=== PATIENT | male | born 1940 | race Caucasian/White ===

== ENCOUNTER 2017-09-13 10:00 | Inpatient (IN) ==
[2017-09-13] MEDS ORDERED: MORPHINE 4 MG/1 ML VIAL IV PRN (11:47)
[2017-09-13] MEDS ORDERED: ONDANSETRON 4 MG/2 ML VIAL IV PRN (11:47)
[2017-09-13 13:07] LABS: Eosinophils % 0.8 % (0.00-10.9); Hematocrit 31.3 VOL% (42.0-52.0); Hemoglobin 10.5 GM/DL (14.0-18.0); Immature Granulocytes % 5.9 %; Immature Granulocytes Absolute 0.23 #; Lymphocytes # 0.4 10*3/uL (1.4-4.0); Lymphocytes % 10.4 % (21.2-54.2); Mean Corpuscular HGB Conc 33.5 GM/DL (32-36); Mean Corpuscular Hemoglobin 29 PG (27-34); Mean Corpuscular Volume 87.7 FL (87-102); Mean Platelet Volume 12.9 FL (9.6-12.0); Monocytes # 0.4 10*3/uL (0.11-0.8); Monocytes % 10.4 % (1.7-12.7); Neutrophils # 2.9 10*3/uL (1.4-7.4); Neutrophils % 72.5 % (38.7-73.9); Red Blood Count 3.57 MC/CUMM (3.8-5.5); White Blood Count 3.9 T/CUMM (4-12)
[2017-09-13 13:14] LABS: Platelet Count 50 T/CUMM (130-400)
[2017-09-13 13:35] LABS: Anisocytosis 1+; Band Neutrophils 32 % (0-10); Lymphocytes 12 % (20-55); Misc Morphology 11; Platelet Estimate Decreased; Segmented Neutrophils 45 % (50-85); Total Cells Counted 100
[2017-09-13 13:35] LABS: Albumin 2.2 G/DL (3.4-5.0); Bilirubin,Total 3.1 MG/DL (0.2-1.0); Calcium 8.6 MG/DL (8.5-10.1); Osmolality,Calculated 288.3 MOS/KG (273-304); Total Protein 6.1 G/DL (6.4-8.3)
[2017-09-13 13:36] LABS: Macrocytosis Slight
[2017-09-13 13:40] LABS: Rheumatoid Factor < 15 IU/ML (<15)
[2017-09-13 14:23] LABS: HIV Antigen/Antibody Result Nonreactive (Nonreactive)
[2017-09-13 14:27] LABS: Hepatitis A Ab IgM Quant 0.19 Index; Hepatitis A Ab IgM Result Negative (Negative); Hepatitis B Core IgM Quant 0.16 Index; Hepatitis B Core IgM Result Negative (Negative); Hepatitis B Surface Ag Quant < 0.10 Index; Hepatitis B Surface Ag Result Negative (Negative); Hepatitis C Virus Ab Quant 0.14 Index; Hepatitis C Virus Ab Result Negative (Negative)
[2017-09-13 14:29] LABS: Bilirubin,Direct 1.54 MG/DL (0.0-0.20); Bilirubin,Indirect 1.5 MG/DL (0.0-1.0)
[2017-09-13 15:06] LABS: Apearance,Urine Slightly Hazy (Clear); Bacteria,Urine Occasional /HPF (Few); Bilirubin,Urine Negative (Negative); Blood, Urine Negative (Negative); Glucose,Urine (UA) Negative (Negative); Hyaline Casts,Urine 1 /LPF (0-3); Ketones,Urine 5 mg/dL (Negative); Mucus,Urine Moderate /LPF (Occasional); Nitrite,Urine Negative (Negative); Protein,Urine 100 MG/DL; RBC,Urine 1 /HPF (0-4); Squamous Epithelial Cell,Urine Occasional /HPF (0-10); Urine Color Amber (Yellow); Urine Specific Gravity 1.033 (1.001-1.035); WBC,Urine 3 /HPF (0-6)
[2017-09-13] MEDS: LACTATED RINGERS 1,000 ML IV SCH (15:36)
[2017-09-13] MEDS: ACETAMINOPHEN 325 MG TABLET PO PRN (15:48)
[2017-09-13] MEDS: CETIRIZINE 10 MG TABLET PO SCH (18:36)
[2017-09-13] MEDS: cefTRIAXone 2,000 MG in SYRINGE 1 EACH IV SCH (18:43)
[2017-09-13] MEDS: ALBUTEROL/IPRATROPIUM 3 ML NEB RESP TX SCH ×2 (19:47→23:35)
[2017-09-13] MEDS ORDERED: DOXYCYCLINE HYCLATE 100 MG CAPSULE PO SCH (21:00)
[2017-09-13] MEDS ORDERED: ALBUTEROL/IPRATROPIUM 3 ML NEB RESP TX ONE (21:07)
[2017-09-13] MEDS: MAGNESIUM CHLORIDE 64 MG TABLET PO SCH (21:41)
[2017-09-13] MEDS: ASPIRIN EC 81 MG TABLET PO SCH (21:41)
[2017-09-13] MEDS: VANCOMYCIN INJ 1,250 MG in SODIUM CHLORIDE 0.9% 250 ML IV SCH (21:42)
[2017-09-13] MEDS: guaiFENesin 200 MG/10 ML UDCUP PO PRN (22:53)
[2017-09-14] MEDS: ALBUTEROL/IPRATROPIUM 3 ML NEB RESP TX SCH ×6 (02:46→23:55)
[2017-09-14] MEDS ORDERED: ENOXAPARIN 40 MG/0.4 ML SYRINGE SUBCUT SCH (05:50)
[2017-09-14 05:55] LABS: Basophils % 0.2 % (0.0-0.8); Eosinophils % 0.2 % (0.00-10.9); Hematocrit 28.3 VOL% (42.0-52.0); Hemoglobin 9.7 GM/DL (14.0-18.0); Immature Granulocytes Absolute 0.21 #; Lymphocytes # 0.8 10*3/uL (1.4-4.0); Mean Corpuscular HGB Conc 34.3 GM/DL (32-36); Mean Corpuscular Hemoglobin 29 PG (27-34); Monocytes # 0.5 10*3/uL (0.11-0.8); NRBC # 0.05 10*3/uL; Neutrophils # 2.6 10*3/uL (1.4-7.4); Neutrophils % 62.6 % (38.7-73.9); Red Blood Count 3.33 MC/CUMM (3.8-5.5); White Blood Count 4.2 T/CUMM (4-12)
[2017-09-14 06:01] LABS: Platelet Count 41 T/CUMM (130-400)
[2017-09-14 06:26] LABS: Albumin 1.9 G/DL (3.4-5.0); Bilirubin,Total 2.4 MG/DL (0.2-1.0); Calcium 8.2 MG/DL (8.5-10.1); Osmolality,Calculated 285.4 MOS/KG (273-304); Potassium 4.4 MMOL/L (3.5-5.1); Total Protein 5.8 G/DL (6.4-8.3)
[2017-09-14 06:36] LABS: Hypochromasia 1+; Lymphocytes 23 % (20-55); Ovalocytes Slight; Platelet Estimate Decreased; Segmented Neutrophils 69 % (50-85); Total Cells Counted 100
[2017-09-14 06:37] LABS: Macrocytosis Slight
[2017-09-14 08:01] LABS: Total Protein (Chem) 5.7 G/DL (6.4-8.3)
[2017-09-14] MEDS: amLODIPine 5 MG TABLET PO SCH (08:31)
[2017-09-14] MEDS: MAGNESIUM CHLORIDE 64 MG TABLET PO SCH ×2 (08:31→20:39)
[2017-09-14] MEDS: PANTOPRAZOLE 40 MG TABLET PO SCH (08:32)
[2017-09-14] MEDS: METOPROLOL SUCCINATE XL 25 MG TABLET PO SCH (08:32)
[2017-09-14] MEDS: ACETAMINOPHEN 325 MG TABLET PO PRN ×2 (08:32→17:18)
[2017-09-14] MEDS: CETIRIZINE 10 MG TABLET PO SCH (08:32)
[2017-09-14 09:19] LABS: Albumin (SPE) 3.2 G/DL (3.2-5.3); Albumin (SPE) Rel % 54.6 %; Alpha 1 (SPE) 0.4 G/DL (0.1-0.4); Alpha 1 (SPE) Rel % 6.8 %; Alpha 2 (SPE) 0.6 G/DL (0.4-1.0); Alpha 2 (SPE) Rel % 11.2 %; Beta (SPE) 0.7 G/DL (0.5-1.1); Beta (SPE) Rel % 12.8 %; Gamma (SPE) 0.8 G/DL (0.7-1.7); Gamma (SPE) Rel % 14.6 %
[2017-09-14] MEDS: VANCOMYCIN INJ 1,250 MG in SODIUM CHLORIDE 0.9% 250 ML IV SCH (11:10)
[2017-09-14] MEDS: LACTATED RINGERS 1,000 ML IV SCH (11:13)
[2017-09-14] MEDS ORDERED: LACTATED RINGERS 1,000 ML IV SCH (11:30)
[2017-09-14] MEDS: DOXYCYCLINE HYCLATE INJ 100 MG in SODIUM CHLORIDE 0.9% 100 ML IV SCH ×2 (13:10→20:39)
[2017-09-14] MEDS: guaiFENesin 200 MG/10 ML UDCUP PO PRN (13:16)
[2017-09-14] MEDS: BENZONATATE 100 MG CAPSULE PO PRN (13:17)
[2017-09-14 15:52] LABS: INR 1.1; PT Patient Result 11.4 SECS; Partial Thromboplastin Time 33.3 SECS (0-40)
[2017-09-14] MEDS ORDERED: FUROSEMIDE 40 MG/4 ML VIAL IV ONE (16:04)
[2017-09-14] MEDS: cefTRIAXone 2,000 MG in SYRINGE 1 EACH IV SCH (18:31)
[2017-09-14] MEDS: ASPIRIN EC 81 MG TABLET PO SCH (20:39)
[2017-09-15] MEDS: ALBUTEROL/IPRATROPIUM 3 ML NEB RESP TX SCH ×5 (03:06→19:09)
[2017-09-15 06:44] LABS: Eosinophils % 0.3 % (0.00-10.9); Hematocrit 24.2 VOL% (42.0-52.0); Hemoglobin 8.4 GM/DL (14.0-18.0); Immature Granulocytes % 2.1 %; Immature Granulocytes Absolute 0.14 #; Lymphocytes # 1.2 10*3/uL (1.4-4.0); Lymphocytes % 18.5 % (21.2-54.2); Mean Corpuscular HGB Conc 34.7 GM/DL (32-36); Mean Corpuscular Hemoglobin 30 PG (27-34); Mean Corpuscular Volume 84.9 FL (87-102); Mean Platelet Volume 12.5 FL (9.6-12.0); Monocytes # 0.9 10*3/uL (0.11-0.8); Monocytes % 12.8 % (1.7-12.7); Neutrophils # 4.5 10*3/uL (1.4-7.4); Neutrophils % 66.3 % (38.7-73.9); Platelet Count 71 T/CUMM (130-400); Red Blood Count 2.85 MC/CUMM (3.8-5.5); Red Cell Distribution Width 14.7 % (9.3-17.3); White Blood Count 6.7 T/CUMM (4-12)
[2017-09-15 06:50] LABS: INR 1.1; PT Patient Result 11.4 SECS; Partial Thromboplastin Time 33.8 SECS (0-40)
[2017-09-15 07:04] LABS: Albumin 1.8 G/DL (3.4-5.0); Bilirubin,Total 1.7 MG/DL (0.2-1.0); Osmolality,Calculated 283.5 MOS/KG (273-304); Potassium 4.2 MMOL/L (3.5-5.1); Total Protein 5.9 G/DL (6.4-8.3)
[2017-09-15 07:12] LABS: Osmolality,Calculated 283.7 MOS/KG (273-304); Potassium 4.2 MMOL/L (3.5-5.1)
[2017-09-15 07:22] LABS: Band Neutrophils 1 % (0-10); Hypochromasia 1+; Lymphocytes 17 % (20-55); Platelet Estimate Decreased; Segmented Neutrophils 72 % (50-85); Total Cells Counted 100
[2017-09-15] MEDS ORDERED: MAGNESIUM SULF RIDER 2 GM in PREMIX 1 EACH IV PRN ×2 (07:30→10:15)
[2017-09-15] MEDS ORDERED: MAGNESIUM SULF RIDER 4 GM in PREMIX 1 EACH IV PRN ×2 (07:30→10:15)
[2017-09-15] MEDS ORDERED: ADENOSINE 6 MG/2 ML VIAL ONE (08:33)
[2017-09-15] MEDS ORDERED: ADENOSINE 6 MG/2 ML VIAL IV ONE (08:38)
[2017-09-15] MEDS ORDERED: DILTIAZEM 100 MG VIAL.ADD IV ONE (08:42)
[2017-09-15] MEDS ORDERED: DILTIAZEM 25 MG/5 ML VIAL IV ONE (08:42)
[2017-09-15] MEDS ORDERED: SODIUM CHLORIDE 0.9% 100 ML IV ONE (08:44)
[2017-09-15] MEDS ORDERED: DILTIAZEM 50 MG/10 ML VIAL IV ONE (08:46)
[2017-09-15] MEDS: DILTIAZEM INJ 100 MG in SODIUM CHLORIDE 0.9% 100 ML IV SCH ×2 (08:50→17:06)
[2017-09-15 09:36] LABS: INR 1.1; PT Patient Result 11.6 SECS; Partial Thromboplastin Time 33.2 SECS (0-40)
[2017-09-15] MEDS ORDERED: SODIUM CHLORIDE 0.45% 1,000 ML IV SCH (10:30)
[2017-09-15] MEDS: METOPROLOL SUCCINATE XL 25 MG TABLET PO SCH (11:01)
[2017-09-15] MEDS: amLODIPine 5 MG TABLET PO SCH (11:01)
[2017-09-15] MEDS: CETIRIZINE 10 MG TABLET PO SCH (11:01)
[2017-09-15] MEDS: PANTOPRAZOLE 40 MG TABLET PO SCH (11:02)
[2017-09-15] MEDS: DOXYCYCLINE HYCLATE INJ 100 MG in SODIUM CHLORIDE 0.9% 100 ML IV SCH ×2 (11:02→20:23)
[2017-09-15] MEDS: cefTRIAXone 2,000 MG in SYRINGE 1 EACH IV SCH (18:29)
[2017-09-15] MEDS: ACETAMINOPHEN 325 MG TABLET PO PRN (18:40)
[2017-09-15] MEDS: ASPIRIN EC 81 MG TABLET PO SCH (20:23)
[2017-09-16] MEDS: ALBUTEROL/IPRATROPIUM 3 ML NEB RESP TX SCH ×6 (01:36→23:34)
[2017-09-16 04:33] LABS: Eosinophils % 0.3 % (0.00-10.9); Hematocrit 22.9 VOL% (42.0-52.0); Hemoglobin 7.7 GM/DL (14.0-18.0); Immature Granulocytes % 1.7 %; Immature Granulocytes Absolute 0.13 #; Lymphocytes # 0.9 10*3/uL (1.4-4.0); Lymphocytes % 11.7 % (21.2-54.2); Mean Corpuscular HGB Conc 33.6 GM/DL (32-36); Mean Corpuscular Hemoglobin 29 PG (27-34); Mean Corpuscular Volume 86.4 FL (87-102); Mean Platelet Volume 12.5 FL (9.6-12.0); Monocytes # 0.8 10*3/uL (0.11-0.8); Monocytes % 9.7 % (1.7-12.7); Neutrophils % 76.6 % (38.7-73.9); Platelet Count 88 T/CUMM (130-400); Red Blood Count 2.65 MC/CUMM (3.8-5.5); Red Cell Distribution Width 15.1 % (9.3-17.3); White Blood Count 7.9 T/CUMM (4-12)
[2017-09-16 05:08] LABS: Calcium 7.3 MG/DL (8.5-10.1); Osmolality,Calculated 282.5 MOS/KG (273-304); Potassium 4.3 MMOL/L (3.5-5.1)
[2017-09-16 05:16] LABS: Band Neutrophils 24 % (0-10); Lymphocytes 7 % (20-55); Segmented Neutrophils 61 % (50-85); Total Cells Counted 100
[2017-09-16 05:17] LABS: Anisocytosis 1+; Poikilocytosis 1+
[2017-09-16] MEDS: ACETAMINOPHEN 325 MG TABLET PO PRN ×4 (06:06→22:48)
[2017-09-16] MEDS: DILTIAZEM CD 240 MG CAPSULE PO SCH (08:49)
[2017-09-16] MEDS: METOPROLOL SUCCINATE XL 25 MG TABLET PO SCH (08:50)
[2017-09-16] MEDS: DOXYCYCLINE HYCLATE INJ 100 MG in SODIUM CHLORIDE 0.9% 100 ML IV SCH ×2 (08:51→21:37)
[2017-09-16] MEDS: PANTOPRAZOLE 40 MG TABLET PO SCH (08:51)
[2017-09-16] MEDS: CETIRIZINE 10 MG TABLET PO SCH (08:51)
[2017-09-16 10:59] LABS: Total Protein 6.1 G/DL (6.4-8.3)
[2017-09-16 12:36] LABS: TB2 Ag Minus Result 0.01 IU/mL
[2017-09-16] MEDS: CLOTRIMAZOLE 10 MG TROCHE PO SCH ×2 (18:35→21:37)
[2017-09-16] MEDS: cefTRIAXone 2,000 MG in SYRINGE 1 EACH IV SCH (18:35)
[2017-09-16] MEDS: ASPIRIN EC 81 MG TABLET PO SCH (21:37)
[2017-09-17] MEDS ORDERED: ACETAMINOPHEN 325 MG TABLET PO ONE (01:18)
[2017-09-17] MEDS: DILTIAZEM INJ 100 MG in SODIUM CHLORIDE 0.9% 100 ML IV SCH ×2 (01:29→06:48)
[2017-09-17 03:15] LABS: ABG Base Excess -1.6 MMOL/L (-2.5-2.5); ABG HCO3 21.8 MMOL/L (20-26); ABG Oxygen Saturation 98.6 % (95-100); ABG PCO2 31.7 MM HG (35-48); ABG PH 7.456 (7.35-7.45); ABG PO2 150.3 MM HG (80-95); ABG TCO2 22.8 MMOL/L (23-27)
[2017-09-17] MEDS: ALBUTEROL/IPRATROPIUM 3 ML NEB RESP TX SCH ×6 (03:33→19:24)
[2017-09-17 04:35] LABS: Calcium 7.9 MG/DL (8.5-10.1); Osmolality,Calculated 283.5 MOS/KG (273-304); Potassium 4.4 MMOL/L (3.5-5.1)
[2017-09-17 04:38] LABS: Albumin 1.7 G/DL (3.4-5.0); Bilirubin,Direct 0.91 MG/DL (0.0-0.20); Bilirubin,Indirect 0.5 MG/DL (0.0-1.0); Bilirubin,Total 1.4 MG/DL (0.2-1.0)
[2017-09-17 04:49] LABS: Basophils % 0.2 % (0.0-0.8); Eosinophils % 0.2 % (0.00-10.9); Hematocrit 22.7 VOL% (42.0-52.0); Hemoglobin 7.8 GM/DL (14.0-18.0); Immature Granulocytes % 0.8 %; Lymphocytes # 0.8 10*3/uL (1.4-4.0); Lymphocytes % 6.1 % (21.2-54.2); Mean Corpuscular HGB Conc 34.4 GM/DL (32-36); Mean Corpuscular Hemoglobin 30 PG (27-34); Mean Corpuscular Volume 86.6 FL (87-102); Mean Platelet Volume 13.2 FL (9.6-12.0); Monocytes # 0.7 10*3/uL (0.11-0.8); Monocytes % 5.4 % (1.7-12.7); Neutrophils # 10.9 10*3/uL (1.4-7.4); Neutrophils % 87.3 % (38.7-73.9); Platelet Count 86 T/CUMM (130-400); Red Blood Count 2.62 MC/CUMM (3.8-5.5); Red Cell Distribution Width 14.9 % (9.3-17.3); White Blood Count 12.5 T/CUMM (4-12)
[2017-09-17] MEDS: CLOTRIMAZOLE 10 MG TROCHE PO SCH ×5 (06:13→21:04)
[2017-09-17 06:22] LABS: Anisocytosis 1+; Band Neutrophils 37 % (0-10); Eosinophils 1 % (0-10); Lymphocytes 5 % (20-55); Platelet Estimate Adequate; Segmented Neutrophils 56 % (50-85); Total Cells Counted 100
[2017-09-17] MEDS: DILTIAZEM CD 240 MG CAPSULE PO SCH (09:07)
[2017-09-17] MEDS: DOXYCYCLINE HYCLATE INJ 100 MG in SODIUM CHLORIDE 0.9% 100 ML IV SCH ×2 (09:07→21:03)
[2017-09-17] MEDS: CETIRIZINE 10 MG TABLET PO SCH (09:08)
[2017-09-17] MEDS: PANTOPRAZOLE 40 MG TABLET PO SCH (09:08)
[2017-09-17] MEDS: METOPROLOL SUCCINATE XL 25 MG TABLET PO SCH (09:08)
[2017-09-17 11:00] LABS: Albumin 1.5 G/DL (3.4-5.0); Bilirubin,Total 1.4 MG/DL (0.2-1.0); Calcium 7.9 MG/DL (8.5-10.1); Osmolality,Calculated 287.4 MOS/KG (273-304); Potassium 4.4 MMOL/L (3.5-5.1); Total Protein 5.8 G/DL (6.4-8.3)
[2017-09-17 12:37] LABS: Cancer Antigen 19-9 11.1 U/ML (0-37); Carcinoembryonic Antigen 0.6 NG/ML (0.0-5.0)
[2017-09-17] MEDS: cefTRIAXone 2,000 MG in SYRINGE 1 EACH IV SCH (18:36)
[2017-09-17] MEDS: ASPIRIN EC 81 MG TABLET PO SCH (21:03)
[2017-09-18] MEDS: ALBUTEROL/IPRATROPIUM 3 ML NEB RESP TX SCH ×7 (00:29→23:35)
[2017-09-18] MEDS: DILTIAZEM INJ 100 MG in SODIUM CHLORIDE 0.9% 100 ML IV SCH (01:42)
[2017-09-18 04:19] LABS: Basophils % 0.2 % (0.0-0.8); Eosinophils % 0.3 % (0.00-10.9); Hemoglobin 7.9 GM/DL (14.0-18.0); Immature Granulocytes % 0.9 %; Immature Granulocytes Absolute 0.11 #; Lymphocytes # 0.8 10*3/uL (1.4-4.0); Mean Corpuscular HGB Conc 34.3 GM/DL (32-36); Mean Corpuscular Hemoglobin 29 PG (27-34); Mean Corpuscular Volume 84.6 FL (87-102); Mean Platelet Volume 12.8 FL (9.6-12.0); Monocytes # 0.8 10*3/uL (0.11-0.8); Monocytes % 6.2 % (1.7-12.7); Neutrophils # 11.2 10*3/uL (1.4-7.4); Neutrophils % 86.4 % (38.7-73.9); Platelet Count 152 T/CUMM (130-400); Red Blood Count 2.72 MC/CUMM (3.8-5.5); Red Cell Distribution Width 15.3 % (9.3-17.3); White Blood Count 12.9 T/CUMM (4-12)
[2017-09-18 04:49] LABS: Calcium 8.2 MG/DL (8.5-10.1); Osmolality,Calculated 291.4 MOS/KG (273-304); Potassium 4.5 MMOL/L (3.5-5.1)
[2017-09-18] MEDS: CLOTRIMAZOLE 10 MG TROCHE PO SCH ×5 (06:36→21:06)
[2017-09-18] MEDS: DILTIAZEM CD 240 MG CAPSULE PO SCH ×2 (07:20→08:18)
[2017-09-18] MEDS: METOPROLOL SUCCINATE XL 25 MG TABLET PO SCH ×2 (07:20→08:18)
[2017-09-18] MEDS: CETIRIZINE 10 MG TABLET PO SCH (09:19)
[2017-09-18] MEDS: FAMOTIDINE 20 MG TABLET PO SCH ×2 (09:19→20:05)
[2017-09-18] MEDS: DOXYCYCLINE HYCLATE INJ 100 MG in SODIUM CHLORIDE 0.9% 100 ML IV SCH ×2 (09:19→20:04)
[2017-09-18] MEDS: ALUM/MAG/SIMETH/LIDO VISC 1:1 30 ML BOTTLE PO PRN (09:19)
[2017-09-18] MEDS ORDERED: METOPROLOL SUCCINATE XL 25 MG TABLET PO ONE (09:47)
[2017-09-18] MEDS: guaiFENesin 200 MG/10 ML UDCUP PO PRN (10:02)
[2017-09-18 10:12] LABS: Anaplasma phagocytophilum Negative (Negative); Ehrlichia chaffeensis Negative (Negative)
[2017-09-18 10:27] LABS: Ehrlichia ewingii/canis Positive (Negative)
[2017-09-18] MEDS: cefTRIAXone 2,000 MG in SYRINGE 1 EACH IV SCH (18:11)
[2017-09-18] MEDS: BENZONATATE 100 MG CAPSULE PO PRN (20:05)
[2017-09-18] MEDS: CIPROFLOXACIN 500 MG TABLET PO SCH (20:05)
[2017-09-18] MEDS: ASPIRIN EC 81 MG TABLET PO SCH (20:05)
[2017-09-18] MEDS: ACETAMINOPHEN 325 MG TABLET PO PRN (20:06)
[2017-09-19] MEDS: ALBUTEROL/IPRATROPIUM 3 ML NEB RESP TX SCH ×5 (03:14→21:31)
[2017-09-19] MEDS: DILTIAZEM INJ 100 MG in SODIUM CHLORIDE 0.9% 100 ML IV SCH (03:15)
[2017-09-19 04:36] LABS: Basophils % 0.1 % (0.0-0.8); Eosinophils # 0.1 10*3/uL (0.0-0.87); Eosinophils % 0.6 % (0.00-10.9); Hematocrit 20.7 VOL% (42.0-52.0); Hemoglobin 7.1 GM/DL (14.0-18.0); Immature Granulocytes Absolute 0.09 #; Lymphocytes % 10.3 % (21.2-54.2); Mean Corpuscular HGB Conc 34.3 GM/DL (32-36); Mean Corpuscular Hemoglobin 30 PG (27-34); Mean Corpuscular Volume 86.6 FL (87-102); Monocytes # 0.6 10*3/uL (0.11-0.8); Monocytes % 6.8 % (1.7-12.7); Neutrophils # 7.6 10*3/uL (1.4-7.4); Neutrophils % 81.2 % (38.7-73.9); Platelet Count 160 T/CUMM (130-400); Red Blood Count 2.39 MC/CUMM (3.8-5.5); Red Cell Distribution Width 15.1 % (9.3-17.3); White Blood Count 9.3 T/CUMM (4-12)
[2017-09-19 04:53] LABS: Calcium 8.3 MG/DL (8.5-10.1); Osmolality,Calculated 292.3 MOS/KG (273-304); Potassium 4.5 MMOL/L (3.5-5.1)
[2017-09-19] MEDS: CLOTRIMAZOLE 10 MG TROCHE PO SCH ×3 (06:15→14:30)
[2017-09-19 06:51] LABS: Immunoglobulin A (Chem) 653 MG/DL (70-400); Immunoglobulin G (Chem) 752 MG/DL (700-1600); Immunoglobulin M (Chem) 116 MG/DL (40-230); Total Protein (Chem) 6.1 G/DL (6.4-8.3)
[2017-09-19] MEDS ORDERED: SODIUM CHLORIDE 0.9% 1,000 ML IV PRN (07:22)
[2017-09-19] MEDS: DOXYCYCLINE HYCLATE INJ 100 MG in SODIUM CHLORIDE 0.9% 100 ML IV SCH ×2 (08:25→20:33)
[2017-09-19] MEDS: DILTIAZEM CD 240 MG CAPSULE PO SCH (08:50)
[2017-09-19] MEDS: METOPROLOL SUCCINATE XL 50 MG TABLET PO SCH (08:50)
[2017-09-19] MEDS: CETIRIZINE 10 MG TABLET PO SCH (08:50)
[2017-09-19] MEDS: CIPROFLOXACIN 500 MG TABLET PO SCH (08:50)
[2017-09-19] MEDS: FAMOTIDINE 20 MG TABLET PO SCH ×2 (08:50→20:30)
[2017-09-19] MEDS: guaiFENesin 200 MG/10 ML UDCUP PO PRN ×2 (08:51→20:32)
[2017-09-19 09:02] LABS: Albumin 1.5 G/DL (3.4-5.0); Bilirubin,Total 1.1 MG/DL (0.2-1.0); Calcium 8.1 MG/DL (8.5-10.1); Osmolality,Calculated 292.3 MOS/KG (273-304); Potassium 4.3 MMOL/L (3.5-5.1); Total Protein 6.4 G/DL (6.4-8.3)
[2017-09-19 09:54] LABS: Albumin (SPE) 2.2 G/DL (3.2-5.3); Albumin (SPE) Rel % 35.9 %; Alpha 1 (SPE) 0.5 G/DL (0.1-0.4); Alpha 1 (SPE) Rel % 7.9 %; Alpha 2 (SPE) Rel % 16.6 %; Beta (SPE) 0.7 G/DL (0.5-1.1); Beta (SPE) Rel % 11.6 %
[2017-09-19 09:55] LABS: Gamma (SPE) 1.7 G/DL (0.7-1.7)
[2017-09-19] MEDS: BENZONATATE 100 MG CAPSULE PO PRN ×2 (13:41→22:23)
[2017-09-19 15:50] LABS: Hematocrit 28.5 VOL% (42.0-52.0)
[2017-09-19 15:57] LABS: Hemoglobin 10.4 GM/DL (14.0-18.0)
[2017-09-19] MEDS: ASPIRIN EC 81 MG TABLET PO SCH (20:30)
[2017-09-20] MEDS: ALBUTEROL/IPRATROPIUM 3 ML NEB RESP TX SCH ×7 (00:45→23:03)
[2017-09-20 04:40] LABS: Eosinophils # 0.1 10*3/uL (0.0-0.87); Eosinophils % 1.9 % (0.00-10.9); Hematocrit 26.4 VOL% (42.0-52.0); Hemoglobin 9.3 GM/DL (14.0-18.0); Immature Granulocytes % 0.9 %; Immature Granulocytes Absolute 0.05 #; Lymphocytes # 0.6 10*3/uL (1.4-4.0); Lymphocytes % 11.7 % (21.2-54.2); Mean Corpuscular HGB Conc 35.2 GM/DL (32-36); Mean Corpuscular Hemoglobin 31 PG (27-34); Mean Corpuscular Volume 86.8 FL (87-102); Mean Platelet Volume 11.9 FL (9.6-12.0); Monocytes # 0.5 10*3/uL (0.11-0.8); Monocytes % 9.1 % (1.7-12.7); Neutrophils # 4.1 10*3/uL (1.4-7.4); Neutrophils % 76.4 % (38.7-73.9); Platelet Count 230 T/CUMM (130-400); Red Blood Count 3.04 MC/CUMM (3.8-5.5); Red Cell Distribution Width 15.4 % (9.3-17.3); White Blood Count 5.4 T/CUMM (4-12)
[2017-09-20 05:34] LABS: Albumin 1.3 G/DL (3.4-5.0); Bilirubin,Total 0.9 MG/DL (0.2-1.0); Potassium 4.3 MMOL/L (3.5-5.1); Total Protein 5.8 G/DL (6.4-8.3)
[2017-09-20 05:37] LABS: Osmolality,Calculated 293.8 MOS/KG (273-304); Potassium 4.4 MMOL/L (3.5-5.1)
[2017-09-20 06:12] LABS: Albumin 1.3 G/DL (3.4-5.0); Bilirubin,Direct 0.42 MG/DL (0.0-0.20); Bilirubin,Indirect 0.7 MG/DL (0.0-1.0); Bilirubin,Total 1.1 MG/DL (0.2-1.0); Total Protein 5.8 G/DL (6.4-8.3)
[2017-09-20] MEDS: DOXYCYCLINE HYCLATE INJ 100 MG in SODIUM CHLORIDE 0.9% 100 ML IV SCH ×2 (07:56→20:45)
[2017-09-20] MEDS: DILTIAZEM CD 240 MG CAPSULE PO SCH (08:01)
[2017-09-20] MEDS: CETIRIZINE 10 MG TABLET PO SCH (08:01)
[2017-09-20] MEDS: METOPROLOL SUCCINATE XL 50 MG TABLET PO SCH (08:02)
[2017-09-20] MEDS: FAMOTIDINE 20 MG TABLET PO SCH ×2 (08:02→20:45)
[2017-09-20] MEDS: BENZONATATE 100 MG CAPSULE PO PRN ×2 (08:05→20:45)
[2017-09-20 10:39] LABS: Immuno Free Light Chain Kappa 6.74 MG/DL (0.33-1.94); Immuno Free Light Chain Lambda 10.82 MG/DL (0.57-2.63); Immuno Free Light Chain Ratio 0.62 MG/DL (0.26-1.65)
[2017-09-20 15:21] LABS: Dengue Ag Interpretation SEE COMMENTS
[2017-09-20] MEDS: ALUM/MAG/SIMETH/LIDO VISC 1:1 30 ML BOTTLE PO PRN (19:07)
[2017-09-20] MEDS: ASPIRIN EC 81 MG TABLET PO SCH (20:45)
[2017-09-21] MEDS: ALBUTEROL/IPRATROPIUM 3 ML NEB RESP TX SCH ×6 (02:42→23:55)
[2017-09-21 03:43] LABS: Basophils % 0.5 % (0.0-0.8); Eosinophils # 0.2 10*3/uL (0.0-0.87); Eosinophils % 3.9 % (0.00-10.9); Hematocrit 27.5 VOL% (42.0-52.0); Hemoglobin 9.2 GM/DL (14.0-18.0); Immature Granulocytes % 0.8 %; Immature Granulocytes Absolute 0.03 #; Lymphocytes # 0.6 10*3/uL (1.4-4.0); Lymphocytes % 14.4 % (21.2-54.2); Mean Corpuscular HGB Conc 33.5 GM/DL (32-36); Mean Corpuscular Hemoglobin 30 PG (27-34); Mean Corpuscular Volume 89.3 FL (87-102); Monocytes # 0.5 10*3/uL (0.11-0.8); Monocytes % 11.8 % (1.7-12.7); Neutrophils # 2.6 10*3/uL (1.4-7.4); Neutrophils % 68.6 % (38.7-73.9); Platelet Count 264 T/CUMM (130-400); Red Blood Count 3.08 MC/CUMM (3.8-5.5); Red Cell Distribution Width 15.2 % (9.3-17.3); White Blood Count 3.8 T/CUMM (4-12)
[2017-09-21 04:11] LABS: Albumin 1.3 G/DL (3.4-5.0); Bilirubin,Total 0.9 MG/DL (0.2-1.0); Calcium 8.2 MG/DL (8.5-10.1); Osmolality,Calculated 289.8 MOS/KG (273-304); Potassium 4.4 MMOL/L (3.5-5.1); Total Protein 5.9 G/DL (6.4-8.3)
[2017-09-21 04:18] LABS: Calcium 8.2 MG/DL (8.5-10.1); Osmolality,Calculated 290.8 MOS/KG (273-304); Potassium 4.4 MMOL/L (3.5-5.1)
[2017-09-21 04:27] LABS: Albumin 1.3 G/DL (3.4-5.0); Bilirubin,Direct 0.33 MG/DL (0.0-0.20); Bilirubin,Indirect 0.4 MG/DL (0.0-1.0); Bilirubin,Total 0.7 MG/DL (0.2-1.0); Total Protein 5.8 G/DL (6.4-8.3)
[2017-09-21] MEDS: DILTIAZEM CD 240 MG CAPSULE PO SCH (09:18)
[2017-09-21] MEDS: METOPROLOL SUCCINATE XL 50 MG TABLET PO SCH (09:20)
[2017-09-21] MEDS: CETIRIZINE 10 MG TABLET PO SCH (09:20)
[2017-09-21] MEDS: FAMOTIDINE 20 MG TABLET PO SCH ×2 (09:20→20:43)
[2017-09-21] MEDS: DOXYCYCLINE HYCLATE INJ 100 MG in SODIUM CHLORIDE 0.9% 100 ML IV SCH ×2 (09:21→20:42)
[2017-09-21 15:13] LABS: Myeloperoxidase Antibody < 0.2 U
[2017-09-21 16:31] LABS: Q Fever IgM Phase I Screen NEGATIVE (NEGATIVE); Q Fever IgM Phase II Screen NEGATIVE (NEGATIVE)
[2017-09-21] MEDS: ASPIRIN EC 81 MG TABLET PO SCH (20:43)
[2017-09-22] MEDS: BENZONATATE 100 MG CAPSULE PO PRN ×2 (02:40→20:55)
[2017-09-22] MEDS: ALBUTEROL/IPRATROPIUM 3 ML NEB RESP TX SCH ×5 (03:38→19:17)
[2017-09-22 04:25] LABS: Basophils % 0.2 % (0.0-0.8); Eosinophils # 0.2 10*3/uL (0.0-0.87); Eosinophils % 4.3 % (0.00-10.9); Hematocrit 28.6 VOL% (42.0-52.0); Hemoglobin 9.5 GM/DL (14.0-18.0); Immature Granulocytes % 0.9 %; Immature Granulocytes Absolute 0.04 #; Lymphocytes # 0.7 10*3/uL (1.4-4.0); Lymphocytes % 16.1 % (21.2-54.2); Mean Corpuscular HGB Conc 33.2 GM/DL (32-36); Mean Corpuscular Hemoglobin 30 PG (27-34); Mean Corpuscular Volume 90.8 FL (87-102); Mean Platelet Volume 11.5 FL (9.6-12.0); Monocytes # 0.4 10*3/uL (0.11-0.8); Monocytes % 9.2 % (1.7-12.7); Neutrophils # 2.9 10*3/uL (1.4-7.4); Neutrophils % 69.3 % (38.7-73.9); Platelet Count 255 T/CUMM (130-400); Red Blood Count 3.15 MC/CUMM (3.8-5.5); Red Cell Distribution Width 15.3 % (9.3-17.3); White Blood Count 4.2 T/CUMM (4-12)
[2017-09-22 04:44] LABS: Albumin 1.5 G/DL (3.4-5.0); Bilirubin,Total 0.7 MG/DL (0.2-1.0); Calcium 7.9 MG/DL (8.5-10.1); Osmolality,Calculated 289.8 MOS/KG (273-304); Potassium 4.5 MMOL/L (3.5-5.1); Total Protein 5.9 G/DL (6.4-8.3)
[2017-09-22 05:08] LABS: Eosinophils 4 % (0-10); Hypochromasia 1+; Lymphocytes 14 % (20-55); Platelet Estimate Adequate; Segmented Neutrophils 73 % (50-85); Total Cells Counted 100
[2017-09-22] MEDS: DOXYCYCLINE HYCLATE INJ 100 MG in SODIUM CHLORIDE 0.9% 100 ML IV SCH ×2 (10:01→20:54)
[2017-09-22] MEDS: FAMOTIDINE 20 MG TABLET PO SCH ×2 (10:02→20:56)
[2017-09-22] MEDS: METOPROLOL SUCCINATE XL 50 MG TABLET PO SCH (10:02)
[2017-09-22] MEDS: CETIRIZINE 10 MG TABLET PO SCH (10:03)
[2017-09-22] MEDS: DILTIAZEM CD 240 MG CAPSULE PO SCH (10:03)
[2017-09-22] MEDS: HYDROCORTISONE 0.5% CREAM 28.35 GM TUBE TOP PRN (19:09)
[2017-09-22] MEDS: ASPIRIN EC 81 MG TABLET PO SCH (20:56)
[2017-09-23] MEDS: ALBUTEROL/IPRATROPIUM 3 ML NEB RESP TX SCH ×7 (00:02→23:03)
[2017-09-23] MEDS: HYDROCORTISONE 0.5% CREAM 28.35 GM TUBE TOP PRN ×2 (05:13→16:50)
[2017-09-23 06:52] LABS: Basophils % 0.3 % (0.0-0.8); Eosinophils # 0.2 10*3/uL (0.0-0.87); Hematocrit 31.4 VOL% (42.0-52.0); Hemoglobin 10.6 GM/DL (14.0-18.0); Immature Granulocytes % 0.6 %; Immature Granulocytes Absolute 0.02 #; Lymphocytes # 0.8 10*3/uL (1.4-4.0); Lymphocytes % 22.6 % (21.2-54.2); Mean Corpuscular HGB Conc 33.8 GM/DL (32-36); Mean Corpuscular Hemoglobin 30 PG (27-34); Mean Platelet Volume 10.4 FL (9.6-12.0); Monocytes # 0.4 10*3/uL (0.11-0.8); Monocytes % 10.1 % (1.7-12.7); Neutrophils # 2.2 10*3/uL (1.4-7.4); Neutrophils % 61.4 % (38.7-73.9); Platelet Count 293 T/CUMM (130-400); Red Blood Count 3.49 MC/CUMM (3.8-5.5); Red Cell Distribution Width 15.5 % (9.3-17.3); White Blood Count 3.6 T/CUMM (4-12)
[2017-09-23 07:19] LABS: Hypochromasia 1+; Microcytosis 1+
[2017-09-23 07:20] LABS: Platelet Estimate Normal
[2017-09-23 07:31] LABS: Albumin 1.6 G/DL (3.4-5.0); Bilirubin,Total 0.7 MG/DL (0.2-1.0); Calcium 7.9 MG/DL (8.5-10.1); Osmolality,Calculated 282.3 MOS/KG (273-304); Potassium 4.4 MMOL/L (3.5-5.1); Total Protein 6.2 G/DL (6.4-8.3)
[2017-09-23] MEDS: DILTIAZEM CD 240 MG CAPSULE PO SCH (08:37)
[2017-09-23] MEDS: CETIRIZINE 10 MG TABLET PO SCH (08:38)
[2017-09-23] MEDS: FAMOTIDINE 20 MG TABLET PO SCH ×2 (08:38→20:49)
[2017-09-23] MEDS: METOPROLOL SUCCINATE XL 50 MG TABLET PO SCH (08:38)
[2017-09-23] MEDS: DOXYCYCLINE HYCLATE INJ 100 MG in SODIUM CHLORIDE 0.9% 100 ML IV SCH ×2 (08:40→20:51)
[2017-09-23] MEDS: ASPIRIN EC 81 MG TABLET PO SCH (20:49)
[2017-09-24] MEDS: ALBUTEROL/IPRATROPIUM 3 ML NEB RESP TX SCH ×5 (03:21→20:19)
[2017-09-24] MEDS: HYDROCORTISONE 0.5% CREAM 28.35 GM TUBE TOP PRN (06:25)
[2017-09-24 06:39] LABS: Basophils % 0.2 % (0.0-0.8); Eosinophils # 0.2 10*3/uL (0.0-0.87); Eosinophils % 4.7 % (0.00-10.9); Hematocrit 31.1 VOL% (42.0-52.0); Immature Granulocytes % 0.6 %; Immature Granulocytes Absolute 0.03 #; Lymphocytes % 19.1 % (21.2-54.2); Mean Corpuscular HGB Conc 32.2 GM/DL (32-36); Mean Corpuscular Hemoglobin 30 PG (27-34); Mean Platelet Volume 10.7 FL (9.6-12.0); Monocytes # 0.5 10*3/uL (0.11-0.8); Monocytes % 8.8 % (1.7-12.7); Neutrophils # 3.4 10*3/uL (1.4-7.4); Neutrophils % 66.6 % (38.7-73.9); Platelet Count 298 T/CUMM (130-400); Red Blood Count 3.38 MC/CUMM (3.8-5.5); Red Cell Distribution Width 15.4 % (9.3-17.3); White Blood Count 5.1 T/CUMM (4-12)
[2017-09-24 06:58] LABS: Albumin 1.4 G/DL (3.4-5.0); Bilirubin,Total 0.8 MG/DL (0.2-1.0); Calcium 8.2 MG/DL (8.5-10.1); Potassium 4.5 MMOL/L (3.5-5.1); Total Protein 5.6 G/DL (6.4-8.3)
[2017-09-24 07:14] LABS: Hypochromasia 1+; Platelet Estimate Adequate
[2017-09-24 07:15] LABS: Microcytosis 1+
[2017-09-24] MEDS: DOXYCYCLINE HYCLATE INJ 100 MG in SODIUM CHLORIDE 0.9% 100 ML IV SCH ×2 (09:33→20:49)
[2017-09-24] MEDS: CETIRIZINE 10 MG TABLET PO SCH (09:34)
[2017-09-24] MEDS: DILTIAZEM CD 240 MG CAPSULE PO SCH (09:34)
[2017-09-24] MEDS: FAMOTIDINE 20 MG TABLET PO SCH ×2 (09:34→20:49)
[2017-09-24] MEDS: METOPROLOL SUCCINATE XL 50 MG TABLET PO SCH (09:34)
[2017-09-24] MEDS: diphenhydrAMINE CAP 25 MG CAPSULE PO PRN (19:15)
[2017-09-24] MEDS: ASPIRIN EC 81 MG TABLET PO SCH (20:49)
[2017-09-25] MEDS: ALBUTEROL/IPRATROPIUM 3 ML NEB RESP TX SCH ×4 (00:19→11:01)
[2017-09-25] MEDS: HYDROCORTISONE 0.5% CREAM 28.35 GM TUBE TOP PRN (00:36)
[2017-09-25] MEDS: diphenhydrAMINE CAP 25 MG CAPSULE PO PRN ×2 (00:36→10:02)
[2017-09-25 07:16] LABS: Basophils % 0.3 % (0.0-0.8); Eosinophils # 0.3 10*3/uL (0.0-0.87); Eosinophils % 4.8 % (0.00-10.9); Hematocrit 32.2 VOL% (42.0-52.0); Hemoglobin 10.6 GM/DL (14.0-18.0); Immature Granulocytes % 1.1 %; Immature Granulocytes Absolute 0.07 #; Lymphocytes # 1.3 10*3/uL (1.4-4.0); Lymphocytes % 21.1 % (21.2-54.2); Mean Corpuscular HGB Conc 32.9 GM/DL (32-36); Mean Corpuscular Hemoglobin 30 PG (27-34); Mean Corpuscular Volume 89.9 FL (87-102); Mean Platelet Volume 10.3 FL (9.6-12.0); Monocytes # 0.6 10*3/uL (0.11-0.8); Monocytes % 9.1 % (1.7-12.7); Neutrophils % 63.6 % (38.7-73.9); Platelet Count 331 T/CUMM (130-400); Red Blood Count 3.58 MC/CUMM (3.8-5.5); Red Cell Distribution Width 15.5 % (9.3-17.3); White Blood Count 6.3 T/CUMM (4-12)
[2017-09-25 07:46] LABS: Albumin 1.5 G/DL (3.4-5.0); Bilirubin,Total 0.5 MG/DL (0.2-1.0); Calcium 7.9 MG/DL (8.5-10.1); Total Protein 5.5 G/DL (6.4-8.3)
[2017-09-25 07:47] LABS: Osmolality,Calculated 282.3 MOS/KG (273-304); Potassium 4.2 MMOL/L (3.5-5.1)
[2017-09-25 09:13] VITALS: BP 147/65
[2017-09-25] MEDS: DILTIAZEM CD 240 MG CAPSULE PO SCH (09:55)
[2017-09-25] MEDS: FAMOTIDINE 20 MG TABLET PO SCH (09:55)
[2017-09-25] MEDS: METOPROLOL SUCCINATE XL 50 MG TABLET PO SCH (09:56)
[2017-09-25] MEDS: CETIRIZINE 10 MG TABLET PO SCH (09:56)
== END 2017-09-25 11:57 | disposition home or self-care (01) | DRG 867 ==
LOC: SUATTDRO 10:55 → N.3E 10:55 → N.ICU 09-15 08:23 → N.3E 09-22 13:15
PROVIDERS: ADMIT Surgery

== ENCOUNTER 2021-09-19 03:14 | Inpatient (IN) ==
[2021-09-19 03:44] LABS: Basophils % 0.7 % (0.0-0.8); Eosinophils # 0.3 10*3/uL (0.0-0.87); Eosinophils % 5.1 % (0.00-10.9); Hematocrit 41.4 VOL% (42.0-52.0); Hemoglobin 13.4 GM/DL (14.0-18.0); Immature Granulocytes % 0.2 %; Immature Granulocytes Absolute 0.01 #; Lymphocytes # 1.2 10*3/uL (1.4-4.0); Lymphocytes % 21.8 % (21.2-54.2); Mean Corpuscular HGB Conc 32.4 GM/DL (32-36); Mean Corpuscular Volume 94.5 FL (87-102); Mean Platelet Volume 10.3 FL (9.6-12.0); Monocytes # 0.6 10*3/uL (0.11-0.8); Monocytes % 10.6 % (1.7-12.7); Neutrophils % 61.6 % (38.7-73.9); Platelet Count 174 T/CUMM (130-400); Red Blood Count 4.38 MC/CUMM (3.8-5.5); Red Cell Distribution Width 12.5 % (9.3-17.3); White Blood Count 5.7 T/CUMM (4-12)
[2021-09-19 03:55] LABS: INR 0.9; PT Patient Result 10.3 SECS (10.5-12.0); Partial Thromboplastin Time 27.2 SECS (23.7-32.9)
[2021-09-19 04:04] LABS: Albumin 3.9 G/DL (3.4-5.0); Bilirubin,Total 0.6 MG/DL (0.20-1.00); Calcium 8.9 MG/DL (8.5-10.1); Osmolality,Calculated 285.1 MOS/KG (273-304); Potassium 3.9 MMOL/L (3.5-5.1); Total Protein 6.7 G/DL (6.4-8.2)
[2021-09-19] MEDS ORDERED: MORPHINE 2 MG/1 ML SYRINGE IV STA (04:18)
[2021-09-19] MEDS ORDERED: ONDANSETRON 4 MG/2 ML VIAL IV ONE (04:18)
[2021-09-19] MEDS ORDERED: NITROGLYCERIN SL 0.4 MG TABLET SL PRN (04:33)
[2021-09-19] MEDS ORDERED: SIMETHICONE CHEW 125 MG TABLET PO PRN (04:33)
[2021-09-19] MEDS ORDERED: ACETAMINOPHEN 325 MG TABLET PO PRN (04:33)
[2021-09-19] MEDS ORDERED: GLUCAGON 1 MG VIAL IM PRN (04:33)
[2021-09-19] MEDS ORDERED: ONDANSETRON 4 MG/2 ML VIAL IV PRN (04:33)
[2021-09-19] MEDS ORDERED: MORPHINE 2 MG/1 ML SYRINGE IV PRN (04:33)
[2021-09-19] MEDS ORDERED: ASPIRIN CHEW 81 MG TABLET PO ONE (04:33)
[2021-09-19] MEDS ORDERED: DEXTROSE 10% 250 ML BAG IV PRN (04:44)
[2021-09-19 07:41] LABS: Risk Ratio 1.91; Thyroid Stimulating Hormone 2.13 uIU/ml (0.358-3.74); VLDL Cholesterol 10.2 MG/DL
[2021-09-19] MEDS: PANTOPRAZOLE 40 MG TABLET PO SCH (10:04)
[2021-09-19] MEDS: DOCUSATE SODIUM 100 MG CAPSULE PO SCH ×2 (10:05→22:08)
[2021-09-19] MEDS: METOPROLOL SUCCINATE XL 25 MG TABLET PO SCH (10:05)
[2021-09-19] MEDS: ENOXAPARIN 40 MG/0.4 ML SYRINGE SUBCUT SCH (10:05)
[2021-09-19] MEDS: ISOSORBIDE MONONITRATE 30 MG TABLET PO SCH (10:05)
[2021-09-19] MEDS: DILTIAZEM CD 300 MG CAPSULE PO SCH (13:58)
[2021-09-19] MEDS: ATORVASTATIN 10 MG TABLET PO SCH (22:08)
[2021-09-20 05:28] LABS: Basophils % 0.4 % (0.0-0.8); Eosinophils # 0.3 10*3/uL (0.0-0.87); Hematocrit 35.9 VOL% (42.0-52.0); Hemoglobin 11.6 GM/DL (14.0-18.0); Immature Granulocytes % 0.2 %; Immature Granulocytes Absolute 0.02 #; Lymphocytes # 1.1 10*3/uL (1.4-4.0); Lymphocytes % 13.6 % (21.2-54.2); Mean Corpuscular HGB Conc 32.3 GM/DL (32-36); Mean Platelet Volume 10.6 FL (9.6-12.0); Monocytes # 0.8 10*3/uL (0.11-0.8); Monocytes % 9.7 % (1.7-12.7); Neutrophils % 73.1 % (38.7-73.9); Platelet Count 154 T/CUMM (130-400); Red Blood Count 3.78 MC/CUMM (3.8-5.5); Red Cell Distribution Width 12.6 % (9.3-17.3); White Blood Count 8.2 T/CUMM (4-12)
[2021-09-20 05:52] LABS: Bilirubin,Total 0.6 MG/DL (0.20-1.00); Calcium 8.6 MG/DL (8.5-10.1); Total Protein 6.1 G/DL (6.4-8.2)
[2021-09-20] MEDS ORDERED: ASPIRIN EC 325 MG TABLET PO SCH (09:00)
[2021-09-20] MEDS: DOCUSATE SODIUM 100 MG CAPSULE PO SCH ×2 (09:27→20:08)
[2021-09-20] MEDS: ENOXAPARIN 40 MG/0.4 ML SYRINGE SUBCUT SCH (09:27)
[2021-09-20] MEDS: ISOSORBIDE MONONITRATE 30 MG TABLET PO SCH (09:27)
[2021-09-20] MEDS: PANTOPRAZOLE 40 MG TABLET PO SCH (09:27)
[2021-09-20] MEDS: DILTIAZEM CD 300 MG CAPSULE PO SCH (09:27)
[2021-09-20] MEDS: METOPROLOL SUCCINATE XL 25 MG TABLET PO SCH (09:27)
[2021-09-20] MEDS: ATORVASTATIN 10 MG TABLET PO SCH (20:08)
[2021-09-21 06:03] LABS: Basophils % 0.5 % (0.0-0.8); Eosinophils # 0.3 10*3/uL (0.0-0.87); Eosinophils % 3.4 % (0.00-10.9); Hemoglobin 13.1 GM/DL (14.0-18.0); Immature Granulocytes % 0.4 %; Immature Granulocytes Absolute 0.03 #; Lymphocytes # 1.5 10*3/uL (1.4-4.0); Lymphocytes % 17.6 % (21.2-54.2); Mean Corpuscular HGB Conc 32.8 GM/DL (32-36); Mean Corpuscular Volume 93.9 FL (87-102); Mean Platelet Volume 10.8 FL (9.6-12.0); Monocytes # 0.9 10*3/uL (0.11-0.8); Monocytes % 10.2 % (1.7-12.7); Neutrophils % 67.9 % (38.7-73.9); Platelet Count 169 T/CUMM (130-400); Red Blood Count 4.26 MC/CUMM (3.8-5.5); Red Cell Distribution Width 12.9 % (9.3-17.3); White Blood Count 8.4 T/CUMM (4-12)
[2021-09-21 06:23] LABS: Calcium 9.4 MG/DL (8.5-10.1); Osmolality,Calculated 285.1 MOS/KG (273-304); Potassium 3.9 MMOL/L (3.5-5.1)
[2021-09-21] MEDS ORDERED: diphenhydrAMINE CAP 25 MG CAPSULE PO ONE (07:30)
[2021-09-21] MEDS ORDERED: DIAZEPAM 5 MG TABLET PO ONE (07:30)
[2021-09-21] MEDS ORDERED: SODIUM CHLORIDE 0.45% 1,000 ML IV SCH (07:30)
[2021-09-21] MEDS: METOPROLOL SUCCINATE XL 25 MG TABLET PO SCH (08:38)
[2021-09-21] MEDS: ISOSORBIDE MONONITRATE 30 MG TABLET PO SCH (08:38)
[2021-09-21] MEDS: DOCUSATE SODIUM 100 MG CAPSULE PO SCH (08:38)
[2021-09-21] MEDS: DILTIAZEM CD 300 MG CAPSULE PO SCH (08:38)
[2021-09-21] MEDS: PANTOPRAZOLE 40 MG TABLET PO SCH (08:38)
[2021-09-21] MEDS: ENOXAPARIN 40 MG/0.4 ML SYRINGE SUBCUT SCH (08:39)
[2021-09-21] MEDS ORDERED: ASPIRIN EC 81 MG TABLET PO SCH (09:00)
[2021-09-21] MEDS ORDERED: NITROGLYCERIN DRIP 50 MG/250 ML BOTTLE IV ONE (10:33)
[2021-09-21] MEDS ORDERED: HEPARIN/NACL 0.9% 2 UNITS/ML 2,000 UNIT/1,000 ML BAG IV ONE (10:33)
[2021-09-21] MEDS ORDERED: VERAPAMIL 5 MG/2 ML VIAL ONE (10:34)
[2021-09-21] MEDS ORDERED: MIDAZOLAM 2 MG/2 ML VIAL ONE (11:00)
[2021-09-21] MEDS ORDERED: fentaNYL 100 MCG/2 ML VIAL ONE (11:00)
[2021-09-21] MEDS ORDERED: ENOXAPARIN 30 MG/0.3 ML SYRINGE ONE (11:45)
[2021-09-21 17:41] VITALS: BP 119/50
== END 2021-09-21 16:47 | disposition home or self-care (01) | DRG 287 ==
LOC: N.ED 03:14 → N.EDINP 03:14 → SUATTDRO 04:33 → N.EDINP 05:17 → N.TELEN 06:25 → SUATTDRO 13:24
PROVIDERS: ADMIT Emergency Medicine; ATTEND Emergency Medicine
PROC: CLCCHCL (ICD-10-PCS; 2021-09-21 11:15)